=== PATIENT | female | born 1985 | race Caucasian/White ===

== ENCOUNTER 2016-10-30 07:05 | Inpatient (IN) | payer BC ==
[2016-10-30] MEDS ORDERED: fentaNYL 100 MCG/2 ML SDV IVPUSH PRN (07:23)
[2016-10-30] MEDS ORDERED: Acetaminophen 325 MG Tab PO PRN (07:23)
[2016-10-30] MEDS ORDERED: Ondansetron 4 MG Tab.DIS PO PRN (07:23)
[2016-10-30] MEDS ORDERED: Sodium Chloride 0.9% 10 ML Syringe FLUSH PRN (07:23)
[2016-10-30] MEDS ORDERED: Misoprostol 50 MCG (1/2 of 100 MCG) Tab ONE (07:27)
[2016-10-30] MEDS ORDERED: Penicillin G Potassium 5 MILLUNITS in Sodium Chloride 0.9% 50 ML IV ONE (07:27)
[2016-10-30] MEDS ORDERED: Penicillin G Potassium 2.5 MILLUNITS in Sodium Chloride 0.9% 50 ML IV SCH (07:30)
--- NOTE | 2016-10-30 07:55 | PCM.LDHP ---
L&D History of Present Illness - General Date of Service: 10/30/16 (induction for HTN) Admit Problem/Dx: Patient Status Order with Admit Dx/Problem 10/30/16 07:23 Patient Status [ADT] Routine Admission Diagnosis/Problem Admission Diagnosis/Problem - planned Source of Information: Patient History Limitations: Reports: No Limitations - History of Present Illness Introduction:: This 10/30/16 who is 39 5/7 presents today for a planned induction for hypertension, history of shoulder dystocia and LGA baby at 40 3/7 last . Labs: ABO B pos HIV neg GBS positive Rubella immine Timing/Duration: Reports: other (having contractions not painful) Improves with: Reports: None Worsens with: Reports: None - Related Data Allergies/Adverse Reactions: Allergies Allergy/AdvReac Type Severity Reaction Status Date / Time No Known Allergies Allergy Verified 05/29/13 19:04 Home Medications: Home Meds Prenat Vit Comb.10/Iron/Fa/Dha [Pnv-Ob with Dha Combo Pack] 1 tab PO DAILY 05/29 [History] Calcium Carbonate/Vitamin D3 [Calcium 500 + Vit D 200 Caplet] 1 tab PO DAILY [History] [place]-3 Fatty Acids [Fish Oil] 500 mg PO DAILY 07/12/15 [History] Past Medical History - Past Health History Medical/Surgical History: Denies Medical/Surgical History Cardiovascular History: Reports: Other (See Below) Other Cardiovascular History: htn in Gastrointestinal History: Reports: Cholelithiasis [employer] History: Reports: : 3 Para: 2 LMP (Approximate): (11/01/16) Psychiatric History: Reports: Anxiety, Depression, Other (See Below) Other Psychiatric History: mainly with - Infectious Disease History Infectious Disease History: Reports: Chicken Pox - Past Surgical History GI Surgical History: Reports: None Social & Family History - Family History Family Medical History: Noncontributory Cardiac: Reports: [place] Respiratory: Reports: Asthma Neurological: Reports: Alzheimers Disease, Migraines, Seizure Psychiatric: Reports: Bipolar Endocrine/Metabolic: Reports: Diabetes, type II - Tobacco Use Smoking Status *Q: Never Smoker Second Hand Smoke Exposure: No - Recreational Drug Use Recreational Drug Use: No H&P Review of Systems - Review of Systems: Review Of Systems: See Below General: Reports: No Symptoms HEENT: Reports: No Symptoms Pulmonary: Reports: No Symptoms Cardiovascular: Reports: No Symptoms Gastrointestinal: Reports: No Symptoms Genitourinary: Reports: No Symptoms Musculoskeletal: Reports: No Symptoms Skin: Reports: No Symptoms Psychiatric: Reports: No Symptoms Neurological: Reports: No Symptoms Hematologic/Lymphatic: Reports: No Symptoms Immunologic: Reports: No Symptoms L&D Exam - Exam Exam: See Below - Vital Signs Vital Signs: Last Vital Signs Temp 97.2 F 10/30/16 07:33 Pulse 89 10/30/16 07:33 Resp 16 10/30/16 07:33 BP 141/89 H 10/30/16 07:33 Pulse Ox 98 10/30/16 07:33 Weight: 205 lb - OB Specific Contraction Intensity: Mild Movement: Active Heart Tones: Present Heart Tones per Min: 145 Heart Rate (FHR) Variability: Moderate (6-25 bmp) Presentation: Vertex Estimated Weight: 8 pounds - Johnson Score Johnson Score Cervix Position: Anterior Johnson Score Consistency: Soft Johnson Score Effacement: 51-70% Johnson Score Dilation: 1-2 cm Johnson Score 's Station: -1 ,0 Johnson Score Total: 9 - Exam General: Alert, Oriented HEENT: PERRLA, Conjunctiva Clear, EACs Clear, EOMI, Hearing Intact, Mucosa Moist & [place], Nares Patent, Normal Nasal Septum, Posterior Pharynx Clear, Pupils Equal, Pupils Reactive, TMs Clear Neck: Supple, Trachea Midline Lungs: Clear to Auscultation, Normal Respiratory Effort Cardiovascular: Regular Rate, Regular Rhythm Abdomen: Normal Bowel Sounds, Soft, Pelvis Stable Rectal Exam: Normal Exam Genitourinary: Normal external exam Back Exam: Normal Inspection, Full Range of Motion Extremities: Normal Inspection Skin: Warm, Dry, Intact Neurological: Cranial Nerves Intact, Reflexes Equal Bilateral Psychiatric: Alert, Normal Affect, Normal Mood - Patient Data Lab Results Last 24 hrs: Laboratory Results - last 24 hr 10/30/16 10/30/16 Range/Units 07:23 07:23 Urine Color Yellow Urine Appearance Clear Urine pH 7.0 (4.5-8.0) Ur Specific [place] 1.005 L (1.008-1.030) Urine Protein Negative (NEGATIVE) mg/dL Urine Glucose (UA) Normal (NEGATIVE) mg/dL Urine Ketones Negative (NEGATIVE) mg/dL Urine Occult Blood Negative (NEGATIVE) Urine Nitrite Negative (NEGATIVE) Urine Bilirubin Negative (NEGATIVE) Urine Urobilinogen Normal (NORMAL) mg/dL Ur Leukocyte Esterase Negative (NEGATIVE) Urine RBC Not seen (0-5) Urine WBC Not seen (0-5) Ur Epithelial Cells Few Amorphous Sediment Not seen Urine Bacteria Not seen Urine Mucus Not seen Urine Opiates Screen Negative (NEGATIVE) Ur Oxycodone Screen Negative (NEGATIVE) Urine Methadone Screen Negative (NEGATIVE) Ur Propoxyphene Screen Negative (NEGATIVE) Ur Barbiturates Screen Negative (NEGATIVE) Ur Tricyclics Screen Negative (NEGATIVE) Ur Phencyclidine Scrn Negative (NEGATIVE) Ur Amphetamine Screen Negative (NEGATIVE) U Methamphetamines Scrn Negative (NEGATIVE) Urine MDMA Screen Negative (NEGATIVE) U Benzodiazepines Scrn Negative (NEGATIVE) U Cocaine Metab Screen Negative (NEGATIVE) U Marijuana (THC) Screen Negative (NEGATIVE) - Problem List (1) Intrauterine SNOMED Code(s): 58619582 ICD Code: Z33.1 - STATE, INCIDENTAL Status: Acute Current Visit : Yes (2) -induced hypertension SNOMED Code(s): 91713497 ICD Code: O13.9 - GESTATIONAL HTN W/O SIGNIFICANT PROTEINURIA, UNSP TRIMESTER Status: Acute Current Visit: Yes (3) GBS (group B Streptococcus carrier), +RV culture, currently SNOMED Code(s): 03290993, 798166651 ICD Code: O99.820 - STREPTOCOCCUS B CARRIER STATE COMPLICATING Status: Acute Current Visit: Yes Problem List Initiated/Reviewed/Updated: Yes Orders Last 24hrs: Active Orders 24 hr Category Date Time Status Patient Status [ADT] Routine ADT 10/30/16 07:23 Active Antiembolic Devices [RC] .Routine Care 10/30/16 07:25 Active Communication Order [RC] ASDIRECTED Care 10/30/16 07:23 Active Heart Tones [RC] PER UNIT ROUTINE Care 10/30/16 07:23 Active May Shower [RC] ASDIRECTED Care 10/30/16 07:23 Active Notify Provider Vital Signs [RC] PRN Care 10/30/16 07:23 Active Notify Provider [RC] PRN Care 10/30/16 07:23 Active OB Check [OM.PC] Click To Edit Care 10/30/16 07:21 Ordered Up ad Geovanna [RC] ASDIRECTED Care 10/30/16 07:23 Active VTE/DVT Education [RC] Click To Edit Care 10/30/16 07:25 Active Vital Signs [RC] PER UNIT ROUTINE Care 10/30/16 07:23 Active Clear Liquid Diet [DIET] Diet 10/30/16 Lunch Active CBC WITH AUTO DIFF [HEME] Routine Lab 10/30/16 07:23 Ordered COMPREHENSIVE METABOLIC PN,CMP [CHEM] Routine Lab 10/30/16 07:23 Ordered LACTATE DEHYDROGENASE,LDH [CHEM] Routine Lab 10/30/16 07:23 Ordered Acetaminophen [Tylenol] Med 10/30/16 07:23 Active 650 mg PO Q4H PRN Misoprostol [Cytotec] Med 10/30/16 08:00 Once 50 mcg VAG ONETIME ONE Ondansetron [Zofran ODT] Med 10/30/16 07:23 Active 4 mg PO Q4H PRN Oxytocin/Normal Saline [Pitocin in NS 20 Units/1,000 ML Med 10/30/16 07:30 Active ] 20 unit in 1,000 ml IV TITRATE Penicillin G Potassium [Pfizerpen] 2.5 millunits Med 10/30/16 12:00 Active Sodium Chloride 0.9% [Normal Saline] 50 ml IV Q4H Penicillin G Potassium [Pfizerpen] 5 millunits Med 10/30/16 08:00 Active Sodium Chloride 0.9% [Normal Saline] 100 ml IV ONETIME Sodium Chloride 0.9% [Saline Flush] Med 10/30/16 07:23 Active 10 ml FLUSH ASDIRECTED PRN fentaNYL [Sublimaze] Med 10/30/16 07:23 Active 100 mcg IVPUSH Q1H PRN DVT/VTE Prophylaxis Reflex [OM.PC] Routine Oth 10/30/16 07:23 Ordered Saline Lock Insert [OM.PC] Routine Oth 10/30/16 07:23 Ordered Resuscitation Status Routine Resus Stat 10/30/16 07:23 Ordered Medication Orders Acetaminophen (Tylenol) 650 mg PO Q4H PRN PRN Reason: Pain (Mild 1-3) and fever Fentanyl (Sublimaze) 100 mcg IVPUSH Q1H PRN PRN Reason: Pain (moderate 4-6) Oxytocin/Sodium Chloride (Pitocin In Ns 20 Units/1,000 Ml) 20 unit in 1,000 mls @ 6 mls/hr IV TITRATE ADELA; 2 MUNITS/MIN PRN Reason: Protocol Penicillin G Potassium 5 (millunits/ Sodium Chloride) 100 mls @ 100 mls/hr IV ONETIME ONE Stop: 10/30/16 08:59 Penicillin G Potassium 2.5 (millunits/ Sodium Chloride) 50 mls @ 100 mls/hr IV Q4H ADELA Misoprostol (Cytotec) 50 mcg VAG ONETIME ONE Stop: 10/30/16 08:01 Last Admin: 10/30/16 07:43 Dose: 50 mcg Ondansetron HCl (Zofran Odt) 4 mg PO Q4H PRN PRN Reason: Nausea/Vomiting Sodium Chloride (Saline Flush) 10 ml FLUSH ASDIRECTED PRN PRN Reason: Keep Vein Open Assessment/Plan Comment:: 39 5/7 gestation with chronic hypertension, history of LGA baby last delivery Johnson score 9, NST reactive GBS positive, treatment started CBC, CMP, LDL, ua pending Misoprostol at 0800 vaginally Monitor for active labor Planning for vaginal delivery
[2016-10-30] MEDS ORDERED: Penicillin G Potassium 5 MILLUNITS in Sodium Chloride 0.9% 100 ML IV ONE (08:00)
[2016-10-30] MEDS ORDERED: Misoprostol 50 MCG (1/2 of 100 MCG) Tab VAG ONE (08:00)
[2016-10-30] MEDS: Penicillin G Potassium 2.5 MILLUNITS in Sodium Chloride 0.9% 50 ML IV SCH ×3 (12:01→20:48)
--- NOTE | 2016-10-30 12:16 | PCM.PNLD ---
Labor Progress Note - VS & Meds Vital Signs: Last Vital Signs Temp 96.6 F 10/30/16 11:40 Pulse 78 10/30/16 11:40 Resp 16 10/30/16 11:40 BP 125/88 10/30/16 11:40 Pulse Ox 98 10/30/16 07:33 Active Medications: Current Medications Acetaminophen (Tylenol) 650 mg PO Q4H PRN PRN Reason: Pain (Mild 1-3) and fever Fentanyl (Sublimaze) 100 mcg IVPUSH Q1H PRN PRN Reason: Pain (moderate 4-6) Oxytocin/Sodium Chloride (Pitocin In Ns 20 Units/1,000 Ml) 20 unit in 1,000 mls @ 6 mls/hr IV TITRATE ADELA; 2 MUNITS/MIN PRN Reason: Protocol Penicillin G Potassium 2.5 (millunits/ Sodium Chloride) 50 mls @ 100 mls/hr IV Q4H ADELA Last Admin: 10/30/16 12:01 Dose: 100 mls/hr Ondansetron HCl (Zofran Odt) 4 mg PO Q4H PRN PRN Reason: Nausea/Vomiting Sodium Chloride (Saline Flush) 10 ml FLUSH ASDIRECTED PRN PRN Reason: Keep Vein Open Discontinued Medications Penicillin G Potassium 5 (millunits/ Sodium Chloride) 100 mls @ 100 mls/hr IV ONETIME ONE Stop: 10/30/16 08:59 Last Admin: 10/30/16 08:01 Dose: 100 mls/hr Misoprostol (Cytotec) 50 mcg VAG ONETIME ONE Stop: 10/30/16 08:01 Last Admin: 10/30/16 07:43 Dose: 50 mcg Misoprostol (Cytotec) Confirm Administered Dose 50 mcg .ROUTE .STK-MED ONE Stop: 10/30/16 07:28 Last Admin: 10/30/16 07:43 Dose: Not Given - Uterine Contractions Uterine Monitoring Mode: External [place] Contraction Frequency (min): 2.5 Contraction Duration (sec): 40-60 Contraction Intensity: Mild Uterine Resting Tone: Soft - Monitoring Monitor Mode: Doppler/Auscultation Heart Rate (FHR) Baseline: 145 Heart Rate (FHR) Variability: Moderate (6-25 bmp) Accelerations: Present, 15x15 Decelerations: None Strip Review: Category I - Vaginal Exam Dilation (cm): 2 Effacement (Percent): 80 Station: -1 Cervical Position: Anterior Sterile Vaginal Exam Performed By: Nguyen Schilling Vaginal Exam Comment: progress since this morning - Labor Progress (Free Text) Labor Progress: Tran every 1-2 minutes regularly. cervical change since tis morning. Contractions are getting stronger Will reassess at 1500, maybe AROM or second dose at that time Planning vaginal delivery
[2016-10-30] MEDS ORDERED: Lidocaine 1% 50 ML MDV ONE (13:25)
[2016-10-30] MEDS ORDERED: Misoprostol 25 MCG (1/4 of 100 MCG) Tab ONE (16:28)
[2016-10-30] MEDS ORDERED: Misoprostol 25 MCG (1/4 of 100 MCG) Tab VAG ONE (16:30)
--- NOTE | 2016-10-30 16:33 | PCM.PNLD ---
Labor Progress Note - VS & Meds Vital Signs: Last Vital Signs Temp 97.8 F 10/30/16 16:05 Pulse 71 10/30/16 16:05 Resp 16 10/30/16 11:40 BP 127/82 10/30/16 16:05 Pulse Ox 98 10/30/16 07:33 Active Medications: Current Medications Acetaminophen (Tylenol) 650 mg PO Q4H PRN PRN Reason: Pain (Mild 1-3) and fever Fentanyl (Sublimaze) 100 mcg IVPUSH Q1H PRN PRN Reason: Pain (moderate 4-6) Oxytocin/Sodium Chloride (Pitocin In Ns 20 Units/1,000 Ml) 20 unit in 1,000 mls @ 6 mls/hr IV TITRATE ADELA; 2 MUNITS/MIN PRN Reason: Protocol Penicillin G Potassium 2.5 (millunits/ Sodium Chloride) 50 mls @ 100 mls/hr IV Q4H ADELA Last Admin: 10/30/16 15:39 Dose: 100 mls/hr Ondansetron HCl (Zofran Odt) 4 mg PO Q4H PRN PRN Reason: Nausea/Vomiting Sodium Chloride (Saline Flush) 10 ml FLUSH ASDIRECTED PRN PRN Reason: Keep Vein Open Discontinued Medications Penicillin G Potassium 5 (millunits/ Sodium Chloride) 100 mls @ 100 mls/hr IV ONETIME ONE Stop: 10/30/16 08:59 Last Admin: 10/30/16 08:01 Dose: 100 mls/hr Lidocaine HCl (Xylocaine 1%) Confirm Administered Dose 50 ml .ROUTE .STK-MED ONE Stop: 10/30/16 13:26 Misoprostol (Cytotec) 50 mcg VAG ONETIME ONE Stop: 10/30/16 08:01 Last Admin: 10/30/16 07:43 Dose: 50 mcg Misoprostol (Cytotec) Confirm Administered Dose 50 mcg .ROUTE .STK-MED ONE Stop: 10/30/16 07:28 Last Admin: 10/30/16 07:43 Dose: Not Given Misoprostol (Cytotec) 25 mcg VAG ONETIME ONE Stop: 10/30/16 16:31 Misoprostol (Cytotec) Confirm Administered Dose 25 mcg .ROUTE .STK-MED ONE Stop: 10/30/16 16:29 - Uterine Contractions Uterine Monitoring Mode: External [place] Contraction Frequency (min): 1.5-3 Contraction Duration (sec): 60-100 Contraction Intensity: Mild Uterine Resting Tone: Soft - Monitoring Monitor Mode: Doppler/Auscultation Heart Rate (FHR) Baseline: 145 Heart Rate (FHR) Variability: Moderate (6-25 bmp) Accelerations: Present, 15x15 Decelerations: None Strip Review: Category I - Vaginal Exam Dilation (cm): 3 Effacement (Percent): 80 Station: -1 Cervical Position: Anterior Sterile Vaginal Exam Performed By: Nguyen Schilling Vaginal Exam Comment: freddy without change - Labor Progress (Free Text) Labor Progress: inserted a 25 mcg dose of Misoprostol vaginally. Will reassess in 2-3 hours Planning vaginal delivery Cat one strip
[2016-10-30] MEDS ORDERED: Oxytocin 10 Units/1 ML SDV ONE (18:52)
[2016-10-30] MEDS ORDERED: Witch Hazel Medicated Pads 100/Jar TOP PRN (20:12)
[2016-10-30] MEDS ORDERED: Ibuprofen 600 MG Tab PO PRN (20:12)
[2016-10-30] MEDS ORDERED: Lanolin 100% Cream 40 GM Tube TOP PRN (20:12)
[2016-10-30] MEDS ORDERED: Benzocaine 20% Top Spray 56 GM Bottle TOP PRN (20:12)
[2016-10-30] MEDS ORDERED: Acetaminophen/Codeine 300-30 MG Tab PO PRN (20:12)
--- NOTE | 2016-10-30 20:25 | PCM.DEL ---
L & D Note - General Info Date of Service: 10/30/16 (delivery) Mother's Due Date: 11/01/16 - Delivery Note Labor: spontaneous Cervical Ripening Method: Misoprostil Delivery Outcome: Livebirth Infant Delivery Method: Spontaneous Vaginal Delivery Delivery Mode: Spontaneous Presentation: Vertex Nuchal Cord: Present (tight clamped and cut) Anesthesia Type: None Amniotic Fluid Description: Clear Episiotomy Type: None Laceration: none Placenta: intact, spontaneous Cord: 3 vessels Estimated Blood Loss: 200 Resuscitation Needed: No [place]: Bulb Syringe, Stimulated, Warmed, [place] Used, Warmer Used Provider: Nguyen Schilling Score 1 min: 8 Score 5 min: 8 Score 10 min: 8 Second Stage Interventions: Reports: Second Nurse Reviewed Heart Tones, Encouragement Given, Pushing Effectively, Pushing, McRobert's Position Delivery Comments (Free Text/Narrative):: This 31 year old G3 now P3 39 5/7 weeks gestation delivered via in [place]. After delivery of head there was a tight nuchal cord which was clamped and cut. Baby delivered without problem he was placed on mother's abdomen where he cried spontaneously. He was taken to the warmer for further assess as he was pale.. Apgars 8,8,8 all for color. He transitioned slowly but O2 sat at 10 minutes was 89-91 HR 172, color remains slightly mottled. weight 8-13. the placenta was expressed spontaneously intact Son, Active management of the third stage was used. No lacerations to the cervix, vagina, perineum or rectum were found. EBL 200cc Mother and baby to post and nursery instable condition first stage 3230-4408 Second stage 8473-2852 thirds stage 9077-4368 Induction Criteria - Johnson Score Johnson Score Dilation: 1-2 cm Johnson Score Effacement: 60-70% Johnson Score 's Station: -1 ,0 Johnson Score Consistency: Soft Johnson Score Cervix Position: Anterior Johnson Score Total: 9 Johnson Score Presenting Part: Reports: Cephalic - Induction Gestational Age >/= 39 wks: Yes Estimated pelvis: Reports: Adequate Reassuring monitoring strip: Yes Absence of tachy systole: Yes - General Info Date of Service: 10/30/16 Admission Dx/Problem (Free Text): Patient Status Order with Admit Dx/Problem 10/30/16 07:23 Patient Status [ADT] Routine Admission Diagnosis/Problem Admission Diagnosis/Problem - planned Functional Status: Reports: pain controlled - Review of Systems General: Reports: No Symptoms HEENT: Reports: no symptoms Pulmonary: Reports: no symptoms Cardiovascular: Reports: No Symptoms Gastrointestinal: Reports: No symptoms Genitourinary: Reports: no symptoms Musculoskeletal: Reports: no symptoms Skin: Reports: no symptoms Neurological: Reports: No Symptoms Psychiatric: Reports: no symptoms - Patient Data Vitals - most recent: Last Vital Signs Temp 97.8 F 10/30/16 16:05 Pulse 71 10/30/16 16:05 Resp 16 10/30/16 11:40 BP 127/82 10/30/16 16:05 Pulse Ox 98 10/30/16 07:33 Weight - most recent: 229 lb 0.012 oz I&O - last 24 hours: Intake & Output 10/30/16 10/30/16 10/30/16 06:59 14:59 22:59 Intake Total 1950 50 Balance 1950 50 Lab Results last 24 hrs: Laboratory Results - last 24 hr 10/30/16 10/30/16 10/30/16 Range/Units 07:23 07:23 07:51 WBC 10.5 (4.5-11.0) K/uL RBC 4.24 (3.30-5.50) M/uL Hgb 13.3 (12.0-15.0) g/dL Hct 38.8 (36.0-48.0) % MCV 92 (80-98) fL MCH 31 (27-31) pg MCHC 34 (32-36) % Plt Count 188 (150-400) K/uL Neut % (Auto) 65 (36-66) % Lymph % (Auto) 26 (24-44) % [place] % (Auto) 7 H (2-6) % Eos % (Auto) 1 L (2-4) % Baso % (Auto) 0 (0-1) % Sodium (140-148) mmol/L Potassium (3.6-5.2) mmol/L Chloride (100-108) mmol/L Carbon Dioxide (21-32) mmol/L Anion Gap (5.0-14.0) mmol/L BUN (7-18) mg/dL Creatinine (0.6-1.0) mg/dL Est Cr Clr Drug Dosing mL/min Estimated GFR (MDRD) (>60) Glucose (74-106) mg/dL Calcium (8.5-10.1) mg/dL Total Bilirubin (0.2-1.0) mg/dL AST (15-37) U/L ALT (12-78) U/L Alkaline Phosphatase (46-116) U/L Lactate Dehydrogenase (82-234) U/L Total Protein (6.4-8.2) g/dL Albumin (3.4-5.0) g/dL Globulin (2.3-3.5) g/dL Albumin/Globulin Ratio (1.2-2.2) Urine Color Yellow Urine Appearance Clear Urine pH 7.0 (4.5-8.0) Ur Specific [place] 1.005 L (1.008-1.030) Urine Protein Negative (NEGATIVE) mg/dL Urine Glucose (UA) Normal (NEGATIVE) mg/dL Urine Ketones Negative (NEGATIVE) mg/dL Urine Occult Blood Negative (NEGATIVE) Urine Nitrite Negative (NEGATIVE) Urine Bilirubin Negative (NEGATIVE) Urine Urobilinogen Normal (NORMAL) mg/dL Ur Leukocyte Esterase Negative (NEGATIVE) Urine RBC Not seen (0-5) Urine WBC Not seen (0-5) Ur Epithelial Cells Few Amorphous Sediment Not seen Urine Bacteria Not seen Urine Mucus Not seen Urine Opiates Screen Negative (NEGATIVE) Ur Oxycodone Screen Negative (NEGATIVE) Urine Methadone Screen Negative (NEGATIVE) Ur Propoxyphene Screen Negative (NEGATIVE) Ur Barbiturates Screen Negative (NEGATIVE) Ur Tricyclics Screen Negative (NEGATIVE) Ur Phencyclidine Scrn Negative (NEGATIVE) Ur Amphetamine Screen Negative (NEGATIVE) U Methamphetamines Scrn Negative (NEGATIVE) Urine MDMA Screen Negative (NEGATIVE) U Benzodiazepines Scrn Negative (NEGATIVE) U Cocaine Metab Screen Negative (NEGATIVE) U Marijuana (THC) Screen Negative (NEGATIVE) 10/30/16 Range/Units 07:51 WBC (4.5-11.0) K/uL RBC (3.30-5.50) M/uL Hgb (12.0-15.0) g/dL Hct (36.0-48.0) % MCV (80-98) fL MCH (27-31) pg MCHC (32-36) % Plt Count (150-400) K/uL Neut % (Auto) (36-66) % Lymph % (Auto) (24-44) % [place] % (Auto) (2-6) % Eos % (Auto) (2-4) % Baso % (Auto) (0-1) % Sodium 138 L (140-148) mmol/L Potassium 4.2 (3.6-5.2) mmol/L Chloride 105 (100-108) mmol/L Carbon Dioxide 27 (21-32) mmol/L Anion Gap 10.2 (5.0-14.0) mmol/L BUN 4 L D (7-18) mg/dL Creatinine 0.8 (0.6-1.0) mg/dL Est Cr Clr Drug Dosing 100.90 mL/min Estimated GFR (MDRD) > 60 (>60) Glucose 114 H (74-106) mg/dL Calcium 8.6 (8.5-10.1) mg/dL Total Bilirubin 0.2 D (0.2-1.0) mg/dL AST 17 (15-37) U/L ALT 14 (12-78) U/L Alkaline Phosphatase 108 (46-116) U/L Lactate Dehydrogenase 179 (82-234) U/L Total Protein 6.3 L (6.4-8.2) g/dL Albumin 2.2 L (3.4-5.0) g/dL Globulin 4.1 H (2.3-3.5) g/dL Albumin/Globulin Ratio 0.5 L (1.2-2.2) Urine Color Urine Appearance Urine pH (4.5-8.0) Ur Specific [place] (1.008-1.030) Urine Protein (NEGATIVE) mg/dL Urine Glucose (UA) (NEGATIVE) mg/dL Urine Ketones (NEGATIVE) mg/dL Urine Occult Blood (NEGATIVE) Urine Nitrite (NEGATIVE) Urine Bilirubin (NEGATIVE) Urine Urobilinogen (NORMAL) mg/dL Ur Leukocyte Esterase (NEGATIVE) Urine RBC (0-5) Urine WBC (0-5) Ur Epithelial Cells Amorphous Sediment Urine Bacteria Urine Mucus Urine Opiates Screen (NEGATIVE) Ur Oxycodone Screen (NEGATIVE) Urine Methadone Screen (NEGATIVE) Ur Propoxyphene Screen (NEGATIVE) Ur Barbiturates Screen (NEGATIVE) Ur Tricyclics Screen (NEGATIVE) Ur Phencyclidine Scrn (NEGATIVE) Ur Amphetamine Screen (NEGATIVE) U Methamphetamines Scrn (NEGATIVE) Urine MDMA Screen (NEGATIVE) U Benzodiazepines Scrn (NEGATIVE) U Cocaine Metab Screen (NEGATIVE) U Marijuana (THC) Screen (NEGATIVE) Med Orders - Current: Current Medications Acetaminophen (Tylenol) 650 mg PO Q4H PRN PRN Reason: Pain (Mild 1-3) and fever Fentanyl (Sublimaze) 100 mcg IVPUSH Q1H PRN PRN Reason: Pain (moderate 4-6) Oxytocin/Sodium Chloride (Pitocin In Ns 20 Units/1,000 Ml) 20 unit in 1,000 mls @ 6 mls/hr IV TITRATE A[place]; 2 MUNITS/MIN PRN Reason: Protocol Penicillin G Potassium 2.5 (millunits/ Sodium Chloride) 50 mls @ 100 mls/hr IV Q4H ADELA Last Admin: 10/30/16 15:39 Dose: 100 mls/hr Ondansetron HCl (Zofran Odt) 4 mg PO Q4H PRN PRN Reason: Nausea/Vomiting Sodium Chloride (Saline Flush) 10 ml FLUSH ASDIRECTED PRN PRN Reason: Keep Vein Open Discontinued Medications Penicillin G Potassium 5 (millunits/ Sodium Chloride) 100 mls @ 100 mls/hr IV ONETIME ONE Stop: 10/30/16 08:59 Last Admin: 10/30/16 08:01 Dose: 100 mls/hr Lidocaine HCl (Xylocaine 1%) Confirm Administered Dose 50 ml .ROUTE .STK-MED ONE Stop: 10/30/16 13:26 Misoprostol (Cytotec) 50 mcg VAG ONETIME ONE Stop: 10/30/16 08:01 Last Admin: 10/30/16 07:43 Dose: 50 mcg Misoprostol (Cytotec) Confirm Administered Dose 50 mcg .ROUTE .STK-MED ONE Stop: 10/30/16 07:28 Last Admin: 10/30/16 07:43 Dose: Not Given Misoprostol (Cytotec) 25 mcg VAG ONETIME ONE Stop: 10/30/16 16:31 Last Admin: 10/30/16 16:25 Dose: 25 mcg Misoprostol (Cytotec) Confirm Administered Dose 25 mcg .ROUTE .STK-MED ONE Stop: 10/30/16 16:29 Last Admin: 10/30/16 16:32 Dose: Not Given Oxytocin (Pitocin) Confirm Administered Dose 10 unit .ROUTE .[employer] ONE Stop: 10/30/16 18:53 - Exam General: alert, oriented HEENT: Pupils equal, Pupils reactive, EOMI, Mucous membr. moist/pink Neck: supple Lungs: Clear to auscultation, Normal respiratory effort Cardiovascular: Regular Rate, Regular Rhythm Abdomen: bowel sounds present, soft, no tenderness, no distension (Female) Exam: Normal External Exam, Normal Speculum Exam, Normal Bimanual Exam, Enlarged Uterus, Vaginal Bleeding Back Exam: Normal Inspection, Full Range of Motion Extremities: no edema Skin: warm, dry, intact Wound/Incisions: healing well Neurological: no new focal deficit Psy/Mental Status: alert, normal affect, normal mood - Problem List & Annotations (1) Intrauterine SNOMED Code(s): 87300056 Code(s): Z33.1 - STATE, INCIDENTAL Status: Acute Current Visit: Yes (2) -induced hypertension SNOMED Code(s): 65788402 Code(s): O13.9 - GESTATIONAL HTN W/O SIGNIFICANT PROTEINURIA, UNSP TRIMESTER Status: Acute Current Visit: Yes (3) GBS (group B Streptococcus carrier), +RV culture, currently SNOMED Code(s): 21899376, 846861114 Code(s): O99.820 - STREPTOCOCCUS B CARRIER STATE COMPLICATING Status: Acute Current Visit: Yes - Problem List Review Problem List Initiated/Reviewed/Updated: Yes - My Orders Last 24 Hours: My Active Orders 10/30/16 07:21 OB Check [OM.PC] Click to Edit 10/30/16 07:23 Communication Order [RC] ASDIRECTED May Shower [RC] ASDIRECTED Notify Provider Vital Signs [RC] PRN Notify Provider [RC] PRN Up ad Geovanna [RC] ASDIRECTED Vital Signs [RC] Q4H Acetaminophen [Tylenol] 650 mg PO Q4H PRN Ondansetron [Zofran ODT] 4 mg PO Q4H PRN Sodium Chloride 0.9% [Saline Flush] 10 ml FLUSH ASDIRECTED PRN fentaNYL [Sublimaze] 100 mcg IVPUSH Q1H PRN DVT/VTE Prophylaxis Reflex [OM.PC] Routine Saline Lock Insert [OM.PC] Routine Resuscitation Status Routine 10/30/16 07:25 Antiembolic Devices [RC] .Routine VTE/DVT Education [RC] Click to Edit 10/30/16 07:30 Oxytocin/Normal Saline [Pitocin in NS 20 Units/1,000 ML] 20 unit in 1,000 ml IV TITRATE 10/30/16 12:00 Penicillin G Potassium [Pfizerpen] 2.5 millunits Sodium Chloride 0.9% [Normal Saline] 50 ml IV Q4H 10/30/16 20:12 Patient Status [ADT] Routine Vital Signs [RC] PFP Acetaminophen/Codeine [Tylenol with Codeine No.3 300MG/30MG] 1 tab PO Q4H PRN Benzocaine [Krvl-N-Qocuxww 20% [place]] See Dose Instructions TOP Q4H PRN Ibuprofen [Motrin] 600 mg PO Q6H PRN Lanolin [Lansinoh HPA] 1 gm TOP ASDIRECTED PRN [place] [Tucks] 1 pad TOP ASDIRECTED PRN Assess Lochia [WOMSER] Per Unit Routine Assess Uterine Involution [WOMSER] Per Unit Routine 10/30/16 20:13 Perineal Care [OM.PC] Per Unit Routine Sitz Bath [OM.PC] Per Unit Routine 10/30/16 Lunch Clear Liquid Diet [DIET] 10/31/16 05:11 CBC WITH AUTO DIFF [HEME] AM 10/31/16 Breakfast Regular Diet [DIET] - Assessment Assessment:: 10/30/16 at 39 5/7 weeks for hypertension without complications GBS positive treated intact perineum breast feeding - Plan Plan:: 39 5/7 gestation with chronic hypertension, history of LGA baby last delivery Johnson score 9, NST reactive GBS positive, treatment started CBC, CMP, LDL, ua pending Misoprostol at 0800 vaginally Monitor for active labor Planning for vaginal delivery 10/30/16 routine cares support 48 hour stay for GBS
[2016-10-31] MEDS ORDERED: Ibuprofen 200 MG Tab, 24 Tab Bulk Bottle PO PRN (02:37)
--- NOTE | 2016-10-31 06:48 | PCM.PNPP ---
- General Info Date of Service: 10/31/16 (PPD 1) Admission Dx/Problem (Free Text): Patient Status Order with Admit Dx/Problem 10/30/16 07:23 Patient Status [ADT] Routine Admission Diagnosis/Problem Admission Diagnosis/Problem - planned Functional Status: Reports: pain controlled - Review of Systems General: Reports: No Symptoms HEENT: Reports: no symptoms Pulmonary: Reports: no symptoms Cardiovascular: Reports: No Symptoms Gastrointestinal: Reports: No symptoms Genitourinary: Reports: no symptoms Musculoskeletal: Reports: no symptoms Skin: Reports: no symptoms Neurological: Reports: No Symptoms Psychiatric: Reports: no symptoms Systems Review Comment:: She feels great this morning, voiding, up and about - General Info Date of Service: 10/31/16 - Patient Data Vital Signs - most recent: Last Vital Signs Temp 98.5 F 10/30/16 23:22 Pulse 69 10/31/16 05:40 Resp 18 10/31/16 05:40 BP 123/69 10/31/16 05:40 Pulse Ox 97 10/31/16 05:40 Weight - most recent: 229 lb 0.012 oz I&O - last 24 hours: Intake & Output 10/30/16 10/30/16 10/31/16 14:59 22:59 06:59 Intake Total 1950 50 2999 Balance 1950 50 2999 Lab Results - last 24 hrs: Laboratory Results - last 24 hr 10/30/16 10/30/16 10/30/16 Range/Units 07:23 07:23 07:51 WBC 10.5 (4.5-11.0) K/uL RBC 4.24 (3.30-5.50) M/uL Hgb 13.3 (12.0-15.0) g/dL Hct 38.8 (36.0-48.0) % MCV 92 (80-98) fL MCH 31 (27-31) pg MCHC 34 (32-36) % Plt Count 188 (150-400) K/uL Neut % (Auto) 65 (36-66) % Lymph % (Auto) 26 (24-44) % [place] % (Auto) 7 H (2-6) % Eos % (Auto) 1 L (2-4) % Baso % (Auto) 0 (0-1) % Sodium (140-148) mmol/L Potassium (3.6-5.2) mmol/L Chloride (100-108) mmol/L Carbon Dioxide (21-32) mmol/L Anion Gap (5.0-14.0) mmol/L BUN (7-18) mg/dL Creatinine (0.6-1.0) mg/dL Est Cr Clr Drug Dosing mL/min Estimated GFR (MDRD) (>60) Glucose (74-106) mg/dL Calcium (8.5-10.1) mg/dL Total Bilirubin (0.2-1.0) mg/dL AST (15-37) U/L ALT (12-78) U/L Alkaline Phosphatase (46-116) U/L Lactate Dehydrogenase (82-234) U/L Total Protein (6.4-8.2) g/dL Albumin (3.4-5.0) g/dL Globulin (2.3-3.5) g/dL Albumin/Globulin Ratio (1.2-2.2) Urine Color Yellow Urine Appearance Clear Urine pH 7.0 (4.5-8.0) Ur Specific [place] 1.005 L (1.008-1.030) Urine Protein Negative (NEGATIVE) mg/dL Urine Glucose (UA) Normal (NEGATIVE) mg/dL Urine Ketones Negative (NEGATIVE) mg/dL Urine Occult Blood Negative (NEGATIVE) Urine Nitrite Negative (NEGATIVE) Urine Bilirubin Negative (NEGATIVE) Urine Urobilinogen Normal (NORMAL) mg/dL Ur Leukocyte Esterase Negative (NEGATIVE) Urine RBC Not seen (0-5) Urine WBC Not seen (0-5) Ur Epithelial Cells Few Amorphous Sediment Not seen Urine Bacteria Not seen Urine Mucus Not seen Urine Opiates Screen Negative (NEGATIVE) Ur Oxycodone Screen Negative (NEGATIVE) Urine Methadone Screen Negative (NEGATIVE) Ur Propoxyphene Screen Negative (NEGATIVE) Ur Barbiturates Screen Negative (NEGATIVE) Ur Tricyclics Screen Negative (NEGATIVE) Ur Phencyclidine Scrn Negative (NEGATIVE) Ur Amphetamine Screen Negative (NEGATIVE) U Methamphetamines Scrn Negative (NEGATIVE) Urine MDMA Screen Negative (NEGATIVE) U Benzodiazepines Scrn Negative (NEGATIVE) U Cocaine Metab Screen Negative (NEGATIVE) U Marijuana (THC) Screen Negative (NEGATIVE) 10/30/16 10/31/16 Range/Units 07:51 05:50 WBC 15.8 H (4.5-11.0) K/uL RBC 4.30 (3.30-5.50) M/uL Hgb 13.7 (12.0-15.0) g/dL Hct 38.7 (36.0-48.0) % MCV 90 (80-98) fL MCH 32 H (27-31) pg MCHC 35 (32-36) % Plt Count 186 (150-400) K/uL Neut % (Auto) 76 H (36-66) % Lymph % (Auto) 18 L (24-44) % [place] % (Auto) 6 (2-6) % Eos % (Auto) 0 L (2-4) % Baso % (Auto) 0 (0-1) % Sodium 138 L (140-148) mmol/L Potassium 4.2 (3.6-5.2) mmol/L Chloride 105 (100-108) mmol/L Carbon Dioxide 27 (21-32) mmol/L Anion Gap 10.2 (5.0-14.0) mmol/L BUN 4 L D (7-18) mg/dL Creatinine 0.8 (0.6-1.0) mg/dL Est Cr Clr Drug Dosing 100.90 mL/min Estimated GFR (MDRD) > 60 (>60) Glucose 114 H (74-106) mg/dL Calcium 8.6 (8.5-10.1) mg/dL Total Bilirubin 0.2 D (0.2-1.0) mg/dL AST 17 (15-37) U/L ALT 14 (12-78) U/L Alkaline Phosphatase 108 (46-116) U/L Lactate Dehydrogenase 179 (82-234) U/L Total Protein 6.3 L (6.4-8.2) g/dL Albumin 2.2 L (3.4-5.0) g/dL Globulin 4.1 H (2.3-3.5) g/dL Albumin/Globulin Ratio 0.5 L (1.2-2.2) Urine Color Urine Appearance Urine pH (4.5-8.0) Ur Specific [place] (1.008-1.030) Urine Protein (NEGATIVE) mg/dL Urine Glucose (UA) (NEGATIVE) mg/dL Urine Ketones (NEGATIVE) mg/dL Urine Occult Blood (NEGATIVE) Urine Nitrite (NEGATIVE) Urine Bilirubin (NEGATIVE) Urine Urobilinogen (NORMAL) mg/dL Ur Leukocyte Esterase (NEGATIVE) Urine RBC (0-5) Urine WBC (0-5) Ur Epithelial Cells Amorphous Sediment Urine Bacteria Urine Mucus Urine Opiates Screen (NEGATIVE) Ur Oxycodone Screen (NEGATIVE) Urine Methadone Screen (NEGATIVE) Ur Propoxyphene Screen (NEGATIVE) Ur Barbiturates Screen (NEGATIVE) Ur Tricyclics Screen (NEGATIVE) Ur Phencyclidine Scrn (NEGATIVE) Ur Amphetamine Screen (NEGATIVE) U Methamphetamines Scrn (NEGATIVE) Urine MDMA Screen (NEGATIVE) U Benzodiazepines Scrn (NEGATIVE) U Cocaine Metab Screen (NEGATIVE) U Marijuana (THC) Screen (NEGATIVE) Med Orders - Current: Current Medications Acetaminophen (Tylenol) 650 mg PO Q4H PRN PRN Reason: Pain (Mild 1-3) and fever Acetaminophen/Codeine Phosphate (Tylenol With Codeine No.3 300mg/30mg) 1 tab PO Q4H PRN PRN Reason: Pain (moderate 4-6) Benzocaine ([place]qah-R-T[place]g 20% [place]) 0 gm TOP Q4H PRN PRN Reason: Perineal Comfort Measure Emollient Ointment (Lansinoh Hpa) 1 gm TOP ASDIRECTED PRN PRN Reason: Sore Nipples Fentanyl (Sublimaze) 100 mcg IVPUSH Q1H PRN PRN Reason: Pain (moderate 4-6) Oxytocin/Sodium Chloride (Pitocin In Ns 20 Units/1,000 Ml) 20 unit in 1,000 mls @ 6 mls/hr IV TITRATE [place]; 2 MUNITS/MIN PRN Reason: Protocol Last Admin: 10/30/16 20:47 Dose: 40 munits/min, 120 mls/hr Ibuprofen (Motrin Bulk Bottle) 600 mg PO Q6H PRN PRN Reason: Pain (moderate 4-6) Last Admin: 10/31/16 02:54 Dose: 600 mg Ondansetron HCl (Zofran Odt) 4 mg PO Q4H PRN PRN Reason: Nausea/Vomiting Sodium Chloride (Saline Flush) 10 ml FLUSH ASDIRECTED PRN PRN Reason: Keep Vein Open Witlolly Menon (Tucks) 1 pad TOP ASDIRECTED PRN PRN Reason: Hemorrhoids Discontinued Medications Penicillin G Potassium 5 (millunits/ Sodium Chloride) 100 mls @ 100 mls/hr IV ONETIME ONE Stop: 10/30/16 08:59 Last Admin: 10/30/16 08:01 Dose: 100 mls/hr Penicillin G Potassium 2.5 (millunits/ Sodium Chloride) 50 mls @ 100 mls/hr IV Q4H ADELA Last Admin: 10/30/16 20:48 Dose: Not Given Ibuprofen (Motrin) 600 mg PO Q6H PRN PRN Reason: mild pain or fever Last Admin: 10/30/16 20:47 Dose: 600 mg Lidocaine HCl (Xylocaine 1%) Confirm Administered Dose 50 ml .ROUTE .STK-MED ONE Stop: 10/30/16 13:26 Last Admin: 10/30/16 20:46 Dose: Not Given Misoprostol (Cytotec) 50 mcg VAG ONETIME ONE Stop: 10/30/16 08:01 Last Admin: 10/30/16 07:43 Dose: 50 mcg Misoprostol (Cytotec) Confirm Administered Dose 50 mcg .ROUTE .STK-MED ONE Stop: 10/30/16 07:28 Last Admin: 10/30/16 07:43 Dose: Not Given Misoprostol (Cytotec) 25 mcg VAG ONETIME ONE Stop: 10/30/16 16:31 Last Admin: 10/30/16 16:25 Dose: 25 mcg Misoprostol (Cytotec) Confirm Administered Dose 25 mcg .ROUTE .STK-MED ONE Stop: 10/30/16 16:29 Last Admin: 10/30/16 16:32 Dose: Not Given Oxytocin (Pitocin) Confirm Administered Dose 10 unit .ROUTE .STK-MED ONE Stop: 10/30/16 18:53 Last Admin: 10/30/16 20:46 Dose: Not Given - Interaction Disposition, : in Room with Family Interaction: Not Interacting Infant Feeding: Breastfed ; Nursed Well Support Person: - Recovery Exam Fundal Tone: Firms with Massage Fundal Level: At Umbilicus Fundal Placement: Midline Lochia Amount: Small Lochia Color: Rubra/Red Perineum Description: Intact, Minimal Bruising/Swelling Episiotomy/Laceration: None - Exam General: alert, oriented HEENT: Pupils equal Neck: supple Lungs: Clear to auscultation, Normal respiratory effort Cardiovascular: Regular Rate, Regular Rhythm Abdomen: bowel sounds present, soft, no tenderness, no distension Extremities: no edema Skin: warm, dry, intact Wound/Incisions: healing well Neurological: no new focal deficit Psy/Mental Status: alert, normal affect, normal mood - Problem List & Annotations (1) Intrauterine SNOMED Code(s): 22145396 Code(s): Z33.1 - STATE, INCIDENTAL Status: Acute Current Visit: Yes (2) -induced hypertension SNOMED Code(s): 08386494 Code(s): O13.9 - GESTATIONAL HTN W/O SIGNIFICANT PROTEINURIA, UNSP TRIMESTER Status: Acute Current Visit: Yes (3) GBS (group B Streptococcus carrier), +RV culture, currently SNOMED Code(s): 17822018, 786630397 Code(s): O99.820 - STREPTOCOCCUS B CARRIER STATE COMPLICATING Status: Acute Current Visit: Yes - Problem List Review Problem List Initiated/Reviewed/Updated: Yes - My Orders Last 24 Hours: My Active Orders 10/30/16 07:21 OB Check [OM.PC] Click To Edit 10/30/16 07:23 Communication Order [RC] ASDIRECTED May Shower [RC] ASDIRECTED Notify Provider Vital Signs [RC] PRN Notify Provider [RC] PRN Up ad Geovanna [RC] ASDIRECTED Vital Signs [RC] Q4H Acetaminophen [Tylenol] 650 mg PO Q4H PRN Ondansetron [Zofran ODT] 4 mg PO Q4H PRN Sodium Chloride 0.9% [Saline Flush] 10 ml FLUSH ASDIRECTED PRN fentaNYL [Sublimaze] 100 mcg IVPUSH Q1H PRN DVT/VTE Prophylaxis Reflex [OM.PC] Routine Saline Lock Insert [OM.PC] Routine Resuscitation Status Routine 10/30/16 07:25 Antiembolic Devices [RC] .Routine VTE/DVT Education [RC] Click To Edit 10/30/16 07:30 Oxytocin/Normal Saline [Pitocin in NS 20 Units/1,000 ML] 20 unit in 1,000 ml IV TITRATE 10/30/16 20:12 Patient Status [ADT] Routine Acetaminophen/Codeine [Tylenol with Codeine No.3 300MG/30MG] 1 tab PO Q4H PRN Benzocaine [Xznw-O-Vmeynbd 20% [place]] See Dose Instructions TOP Q4H PRN Lanolin [Lansinoh HPA] 1 gm TOP ASDIRECTED PRN Frank Menon [Tucks] 1 pad TOP ASDIRECTED PRN Assess Lochia [WOMSER] Per Unit Routine Assess Uterine Involution [WOMSER] Per Unit Routine 10/30/16 20:13 Perineal Care [OM.PC] Per Unit Routine Sitz Bath [OM.PC] Per Unit Routine 10/30/16 Lunch Clear Liquid Diet [DIET] 10/31/16 02:37 Ibuprofen [Motrin Bulk Bottle] 600 mg PO Q6H PRN 10/31/16 Breakfast Regular Diet [DIET] - Assessment Assessment:: 10/30/16 at 39 5/7 weeks for hypertension without complications GBS positive treated intact perineum breast feeding 10/31/16 39 5/7 no complications treated GBS, no fever HGB 13.7 - Plan Plan:: 39 5/7 gestation with chronic hypertension, history of LGA baby last delivery Johnson score 9, NST reactive GBS positive, treatment started CBC, CMP, LDL, ua pending Misoprostol at 0800 vaginally Monitor for active labor Planning for vaginal delivery 10/30/16 routine cares support 48 hour stay for GBS 10/31/16 Continue routine cares Home tomorrow
[2016-10-31] MEDS ORDERED: Docusate Sodium 100 MG Cap PO PRN ×2 (15:14→18:16)
[2016-11-01 08:11] VITALS: BP 123/78
--- NOTE | 2016-11-01 09:29 | PCM.PNPP ---
- General Info Date of Service: 11/01/16 Admission Dx/Problem (Free Text): Patient Status Order with Admit Dx/Problem 10/30/16 07:23 Patient Status [ADT] Routine Admission Diagnosis/Problem Admission Diagnosis/Problem - planned Functional Status: Reports: pain controlled - Review of Systems General: Reports: No Symptoms HEENT: Reports: no symptoms Pulmonary: Reports: no symptoms Cardiovascular: Reports: No Symptoms Gastrointestinal: Reports: No symptoms Genitourinary: Reports: no symptoms Musculoskeletal: Reports: no symptoms Skin: Reports: no symptoms Neurological: Reports: No Symptoms Psychiatric: Reports: no symptoms - General Info Date of Service: 11/01/16 - Patient Data Vital Signs - most recent: Last Vital Signs Temp 97.3 F 11/01/16 08:10 Pulse 66 11/01/16 08:10 Resp 16 11/01/16 08:10 BP 123/78 11/01/16 08:10 Pulse Ox 98 11/01/16 08:10 Weight - most recent: 229 lb 0.012 oz Med Orders - Current: Current Medications Acetaminophen (Tylenol) 650 mg PO Q4H PRN PRN Reason: Pain (Mild 1-3) and fever Acetaminophen/Codeine Phosphate (Tylenol With Codeine No.3 300mg/30mg) 1 tab PO Q4H PRN PRN Reason: Pain (moderate 4-6) Benzocaine (Ooml-Q-Btlkxbx 20% [place]) 0 gm TOP Q4H PRN PRN Reason: Perineal Comfort Measure Docusate Sodium (Colace) 100 mg PO DAILY PRN PRN Reason: Constipation Last Admin: 11/01/16 08:16 Dose: 100 mg Emollient Ointment (Lansinoh Hpa) 1 gm TOP ASDIRECTED PRN PRN Reason: Sore Nipples Ibuprofen (Motrin Bulk Bottle) 600 mg PO Q6H PRN PRN Reason: Pain (moderate 4-6) Last Admin: 10/31/16 02:54 Dose: 600 mg Ondansetron HCl (Zofran Odt) 4 mg PO Q4H PRN PRN Reason: Nausea/Vomiting Sodium Chloride (Saline Flush) 10 ml FLUSH ASDIRECTED PRN PRN Reason: Keep Vein Open Witch Lynsey (Tucks) 1 pad TOP ASDIRECTED PRN PRN Reason: Hemorrhoids Discontinued Medications Docusate Sodium (Colace) 100 mg PO BID PRN PRN Reason: Constipation Fentanyl (Sublimaze) 100 mcg IVPUSH Q1H PRN PRN Reason: Pain (moderate 4-6) Oxytocin/Sodium Chloride (Pitocin In Ns 20 Units/1,000 Ml) 20 unit in 1,000 mls @ 6 mls/hr IV TITRATE ADELA; 2 MUNITS/MIN PRN Reason: Protocol Last Admin: 10/30/16 20:47 Dose: 40 munits/min, 120 mls/hr Penicillin G Potassium 5 (millunits/ Sodium Chloride) 100 mls @ 100 mls/hr IV ONETIME ONE Stop: 10/30/16 08:59 Last Admin: 10/30/16 08:01 Dose: 100 mls/hr Penicillin G Potassium 2.5 (millunits/ Sodium Chloride) 50 mls @ 100 mls/hr IV Q4H ADELA Last Admin: 10/30/16 20:48 Dose: Not Given Ibuprofen (Motrin) 600 mg PO Q6H PRN PRN Reason: mild pain or fever Last Admin: 10/30/16 20:47 Dose: 600 mg Lidocaine HCl (Xylocaine 1%) Confirm Administered Dose 50 ml .ROUTE .STK-MED ONE Stop: 10/30/16 13:26 Last Admin: 10/30/16 20:46 Dose: Not Given Misoprostol (Cytotec) 50 mcg VAG ONETIME ONE Stop: 10/30/16 08:01 Last Admin: 10/30/16 07:43 Dose: 50 mcg Misoprostol (Cytotec) Confirm Administered Dose 50 mcg .ROUTE .STK-MED ONE Stop: 10/30/16 07:28 Last Admin: 10/30/16 07:43 Dose: Not Given Misoprostol (Cytotec) 25 mcg VAG ONETIME ONE Stop: 10/30/16 16:31 Last Admin: 10/30/16 16:25 Dose: 25 mcg Misoprostol (Cytotec) Confirm Administered Dose 25 mcg .ROUTE .STK-MED ONE Stop: 10/30/16 16:29 Last Admin: 10/30/16 16:32 Dose: Not Given Oxytocin (Pitocin) Confirm Administered Dose 10 unit .ROUTE .STK-MED ONE Stop: 10/30/16 18:53 Last Admin: 10/30/16 20:46 Dose: Not Given - Interaction Disposition, : [place] in Room with Family Infant Interaction: Holding Infant Feeding: Breastfed Infant; Nursed Well Support Person: - Recovery Exam Fundal Tone: Firm Fundal Level: At Umbilicus Fundal Placement: Midline Lochia Amount: Small Lochia Color: Rubra/Red Perineum Description: Intact, Minimal Bruising/Swelling Episiotomy/Laceration: None Bladder Status: Voiding - Exam General: alert, oriented HEENT: Pupils equal Neck: supple Lungs: Clear to auscultation, Normal respiratory effort Cardiovascular: Regular Rate, Regular Rhythm Abdomen: bowel sounds present, soft, no tenderness, no distension Extremities: no edema Skin: warm, dry, intact Wound/Incisions: healing well Neurological: no new focal deficit Psy/Mental Status: alert, normal affect, normal mood - Problem List & Annotations (1) Intrauterine SNOMED Code(s): 18847343 Code(s): Z33.1 - STATE, INCIDENTAL Status: Acute Current Visit: Yes (2) -induced hypertension SNOMED Code(s): 13305389 Code(s): O13.9 - GESTATIONAL HTN W/O SIGNIFICANT PROTEINURIA, UNSP TRIMESTER Status: Acute Current Visit: Yes (3) GBS (group B Streptococcus carrier), +RV culture, currently SNOMED Code(s): 66313188, 613050502 Code(s): O99.820 - STREPTOCOCCUS B CARRIER STATE COMPLICATING Status: Acute Current Visit: Yes - Problem List Review Problem List Initiated/Reviewed/Updated: Yes - My Orders Last 24 Hours: My Active Orders 10/31/16 18:16 Docusate Sodium [Colace] 100 mg PO DAILY PRN - Assessment Assessment:: 10/30/16 at 39 5/7 weeks for hypertension without complications GBS positive treated intact perineum breast feeding 10/31/16 39 5/7 no complications treated GBS, no fever HGB 13.7 11/01/16 doing well, no problems ready for discharge - Plan Plan:: 39 08/23 gestation with chronic hypertension, history of LGA baby last delivery Johnson score 9, NST reactive GBS positive, treatment started CBC, CMP, LDL, ua pending Misoprostol at 0800 vaginally Monitor for active labor Planning for vaginal delivery 10/30/16 routine cares support 48 hour stay for GBS 10/31/16 Continue routine cares Home tomorrow 11/01/16 Home today see me in 6 weeks for a post visit
== END 2016-11-01 12:34 | disposition home or self-care (01) | DRG 560 ==
LOC: JP.OB 07:05 → OBSVTOIN 19:46 → JP.MS 10-31 13:05
PROVIDERS: ADMIT Nurse Practitioner Family; ATTEND Nurse Practitioner Family
PROC: 10E0XZZ Delivery of Products of Conception, External Approach (ICD-10-PCS; principal; 2016-10-30)
DX: O13.4 Gestational [pregnancy-induced] hypertension without significant proteinuria, complicating childbirth (principal); O99.824 Streptococcus B carrier state complicating childbirth; O69.1XX0 Labor and delivery complicated by cord around neck, with compression, not applicable or unspecified; Z3A.39 39 weeks gestation of pregnancy; Z37.0 Single live birth
CPT/HCPCS: 36415; 80053; 80305; 81001; 83615; 85025; 99211; A9270-GY; J2540; J2590; J7030; J7050

== ENCOUNTER 2021-03-01 22:00 | Emergency (ER) | payer BC ==
[2021-03-01 23:20] VITALS: BP 142/88; PULSE 76
[2021-03-01] MEDS ORDERED: cefTRIAXone 1 GM Vial IM ONE (23:56)
--- NOTE | 2021-03-02 00:01 | EDM.PDOC ---
ED HPI GENERAL MEDICAL PROBLEM - General Chief Complaint: Genitourinary Problem Stated Complaint: POSS UTI Time Seen by Provider: 03/01/21 23:57 Source of Information: Reports: Patient, Family History Limitations: Reports: No Limitations - History of Present Illness INITIAL COMMENTS - FREE TEXT/NARRATIVE: pt arrived with pain in cva bilaterally and the urge to void. She is feeling some better now. Onset: Today Duration: Hour(s): Location: Reports: Abdomen, Back, Other (pain in cva area bilaterally. 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 preeclampsia Psychiatric History: Reports: Anxiety, Depression, Other (See Below) Other Psychiatric History: mainly with - Infectious Disease History Infectious Disease History: Reports: Chicken Pox - Past Surgical History GI Surgical History: Reports: Cholecystectomy Social & Family History - Family History Family Medical History: No Pertinent Family History Cardiac: Reports: NM Respiratory: Reports: Asthma Neurological: Reports: Alzheimers Disease, Migraines, Seizure Psychiatric: Reports: Bipolar Endocrine/Metabolic: Reports: Diabetes, type II - Tobacco Use Tobacco Use Status *Q: Never Tobacco User - Caffeine Use Caffeine Use: Reports: Coffee Other Caffeine Use: daily ED ROS GENERAL - Review of Systems Review Of Systems: See Below Constitutional: Reports: No Symptoms HEENT: Reports: No Symptoms Respiratory: Reports: No Symptoms Cardiovascular: Reports: No Symptoms Endocrine: Reports: No Symptoms GI/Abdominal: Reports: Abdominal Pain, Other (pt had pain in the cva are bilaterally. ) : Reports: Frequency, Urgency Musculoskeletal: Reports: No Symptoms Skin: Reports: No Symptoms ED EXAM, RENAL/ - Physical Exam Exam: See Below Text/Narrative:: pt arrived with a history of back pain and some urgency. She has not had a UTI in the past. Pt feels that she is not preg, Her urine does look quite infected. Exam Limited By: No Limitations General Appearance: Alert, Anxious, Mild Distress Ears: Normal TMs Nose: Normal Inspection Throat/Mouth: Normal Inspection Head: Atraumatic Neck: Normal Inspection Respiratory/Chest: No Respiratory Distress Cardiovascular: Regular Rate, Rhythm, Tachycardia GI/Abdominal: Soft, Non-Tender, Other (pt does not have sig cva tenderness. ) (Female) Exam: Deferred Rectal (Female) Exam: Deferred Back Exam: Normal Inspection Extremities: Normal Inspection Neurological: Alert, Oriented, Normal Cognition Psychiatric: Anxious Course - Vital Signs Last Recorded V/S: Last Vital Signs Temp 36.7 C 03/01/21 23:20 Pulse 76 03/01/21 23:20 Resp 17 03/01/21 23:20 BP 142/88 H 03/01/21 23:20 Pulse Ox 96 03/01/21 23:20 - Orders/Labs/Meds Orders: Active Orders 24 hr Category Date Time Status CULTURE URINE [RM] Stat Lab 03/01/21 23:56 Received Labs: Laboratory Tests 03/01/21 03/01/21 03/02/21 Range/Units 00:17 22:12 00:04 WBC 13.7 H (4.5-11.0) K/uL RBC 4.70 (3.30-5.50) M/uL Hgb 14.6 D (12.0-15.0) g/dL Hct 41.9 (36.0-48.0) % MCV 89 (80-98) fL MCH 31 (27-31) pg MCHC 35 (32-36) % Plt Count 252 (150-400) K/uL Neut % (Auto) 72.9 H (36-66) % Lymph % (Auto) 17.5 L (24-44) % [place] % (Auto) 7.7 H (2-6) % Eos % (Auto) 1.6 L (2-4) % Baso % (Auto) 0.3 (0-1) % Urine Color Yellow (YELLOW) Urine Appearance Cloudy A (CLEAR) Urine pH 6.5 (5.0-8.0) Ur Specific [place] 1.015 (1.008-1.030) Urine Protein Trace H (NEGATIVE) mg/dL Urine Glucose (UA) Negative (NEGATIVE) mg/dL Urine Ketones Negative (NEGATIVE) mg/dL Urine Occult Blood Large H (NEGATIVE) Urine Nitrite Negative (NEGATIVE) Urine Bilirubin Negative (NEGATIVE) Urine Urobilinogen 0.2 (0.2-1.0) EU/dL Ur Leukocyte Esterase Moderate H (NEGATIVE) Urine RBC 0-5 (0-5) Urine WBC 20-30 H (0-5) Ur Epithelial Cells Rare Amorphous Sediment Not seen Urine Bacteria Moderate Urine Mucus Not seen Urine HCG, Qual Negative Meds: Medications Discontinued Medications Generic Name Dose Route Start Last Admin Trade Name Irene PRN Reason Stop Dose Admin Ceftriaxone Sodium 1 gm 03/01/21 23:56 03/02/21 00:11 Ceftriaxone 1 Gm Vial IM 03/01/21 23:57 1 gm ONETIME ONE Administration Lidocaine HCl Confirm 03/02/21 00:03 03/02/21 00:11 Lidocaine 1% 5 Ml Sdv Administered 03/02/21 00:04 Not Given Dose 5 ml .ROUTE .STK-MED ONE Lidocaine HCl 2.1 ml 03/02/21 00:10 03/02/21 00:11 Lidocaine 1% 5 Ml Sdv INJECT 03/02/21 00:11 2.1 ml ONETIME ONE Administration - Re-Assessments/Exams Free Text/Narrative Re-Assessment/Exam: 03/02/21 00:42 wbc was 13,000. Pt was given the rocghen and she did get a little lit headed. She was given oral fluids and she is feeling better. She will be discharged on cipro. 03/02/21 18:25 Departure - Departure Time of Disposition: 00:44 Disposition: Home, Self-Care 01 Condition: Fair Clinical Impression: Kidney infection - Discharge Information Instructions: Pyelonephritis, Adult, [id number] Referrals: Nguyen Schilling CNM [Primary Care Provider] - Forms: ED Department Discharge Care Plan Goals: cipro 500mg bid, --10 days, rtc if symptoms should get worse, push fluids, will notify of the urine c and s, Sepsis Event Note (ED) - Evaluation Sepsis Screening Result: No Definite Risk - My Orders Last 24 Hours: My Active Orders 03/01/21 23:56 CULTURE URINE [RM] Stat - Assessment/Plan Last 24 Hours: My Active Orders 03/01/21 23:56 CULTURE URINE [RM] Stat
== END 2021-03-02 00:57 | disposition home or self-care (01) ==
LOC: JP.ED 22:00
DX: N15.9 Renal tubulo-interstitial disease, unspecified (principal)
CPT/HCPCS: 36415; 81001; 81025; 85025; 87086; 87088; 87186; 96372; 99284; J0696

== ENCOUNTER 2023-08-29 20:33 | Emergency (ER) | payer BC ==
[2023-08-29 20:47] VITALS: BP 142/75; PULSE 92
[2023-08-29] MEDS: cefTRIAXone 1 GM, Lidocaine 1% 2.1 ML IM ONE (21:34)
== END 2023-08-29 21:57 | disposition home or self-care (01) ==
LOC: JP.ED 20:33
DX: N61.0 Mastitis without abscess (principal); Z90.49 Acquired absence of other specified parts of digestive tract; Z79.899 Other long term (current) drug therapy
CPT/HCPCS: 96372; 99283; J0696